=== PATIENT | female | born 2005 | race African-American/Black ===

== ENCOUNTER 2024-05-11 13:59 | Emergency (ER) | payer BC, OTHER ==
[~2024-05-11] VITALS: Ht 167.6 cm; Wt 68.0 kg
[~2024-05-11 13:59] MED LIST: GYNE-LOTRIMIN45 GM TOP
[2024-05-11 14:05] VITALS: PULSE 88; RESP 18; TEMP 98.1; O2SAT 99
[2024-05-11] MEDS ORDERED: ONDANSETRON HCL4 MG PO (15:17)
[2024-05-11] MEDS: ONDANSETRON HCL 4 MG ORAL DISINTEGRATING TAB PO ONE (15:30)
== END 2024-05-11 15:30 | disposition home or self-care (01) ==
LOC: FSED 14:02
DX: R11.2 Nausea with vomiting, unspecified (principal); U07.1 COVID-19; B34.9 Viral infection, unspecified; R19.7 Diarrhea, unspecified; R01.1 Cardiac murmur, unspecified; F41.9 Anxiety disorder, unspecified; F17.210 Nicotine dependence, cigarettes, uncomplicated
CPT/HCPCS: 0223U; 81003; 81025; 83518; 87400; 99283; Q0162